=== PATIENT | female | born 1950 | race Caucasian/White ===

== ENCOUNTER 2022-04-21 07:45 | Outpatient (CLI) | payer OTHER | END 2022-04-21 07:46 | disposition home or self-care (01) | LOC: SCSMRI 07:45 | DX: M71.21 Synovial cyst of popliteal space [Baker], right knee (principal); M89.38 Hypertrophy of bone, other site ==

== ENCOUNTER 2022-08-02 15:37 | Outpatient (CLI) | payer OTHER | END 2022-08-02 15:38 | disposition home or self-care (01) | LOC: ULT 15:37 | PROVIDERS: ATTEND Family Medicine | DX: R22.2 Localized swelling, mass and lump, trunk (principal) | CPT/HCPCS: 76999 ==

== ENCOUNTER 2023-06-28 08:37 | Outpatient (CLI) | payer OTHER | END 2023-06-28 08:38 | disposition home or self-care (01) | LOC: MRI 08:37 | PROVIDERS: ATTEND Family Medicine | DX: Z86.73 Personal history of transient ischemic attack (TIA), and cerebral infarction without residual deficits (principal); I67.89 Other cerebrovascular disease | CPT/HCPCS: 70551; 93880 ==

== ENCOUNTER 2023-09-27 12:24 | Outpatient (CLI) | payer OTHER | END 2023-09-27 12:25 | disposition home or self-care (01) | LOC: CT 12:24 | PROVIDERS: ATTEND Family Medicine | DX: Z12.2 Encounter for screening for malignant neoplasm of respiratory organs (principal); N28.1 Cyst of kidney, acquired; E27.8 Other specified disorders of adrenal gland; Z87.891 Personal history of nicotine dependence | CPT/HCPCS: 71271 ==

== ENCOUNTER 2023-09-30 07:56 | Outpatient (CLI) | payer OTHER | END 2023-09-30 07:57 | disposition home or self-care (01) | LOC: BICMAMMO 07:56 | PROVIDERS: ATTEND Family Medicine | DX: Z12.31 Encounter for screening mammogram for malignant neoplasm of breast (principal); Z91.89 Other specified personal risk factors, not elsewhere classified | CPT/HCPCS: 77063; 77067 ==

== ENCOUNTER 2023-12-26 09:36 | Outpatient (CLI) | payer OTHER ==
[~2023-12-26 09:36] MED LIST: Iopamidol 370 76% 100 ML VIAL ONE
== END 2023-12-26 09:37 | disposition home or self-care (01) ==
LOC: BICCT 09:36
PROVIDERS: ATTEND Family Medicine
DX: E27.8 Other specified disorders of adrenal gland (principal); N28.1 Cyst of kidney, acquired; I71.43 Infrarenal abdominal aortic aneurysm, without rupture
CPT/HCPCS: 74170; 82565; Q9967

== ENCOUNTER 2024-05-07 22:11 | Inpatient (IN) | payer OTHER, MEDICARE ==
[2024-05-07] MEDS ORDERED: Dexamethasone 10 MG/ML VIAL ONE ×2 (23:23→23:55)
[2024-05-07] MEDS ORDERED: Albuterol 2.5 MG (3 mL) NEB ONE (23:23)
[2024-05-07] MEDS ORDERED: Ipratropium/Albuterol 3 ML NEB ONE (23:24)
[2024-05-07] MEDS ORDERED: Magnesium 2 GM/50 ML BAG (IN WATER) ONE (23:24)
[2024-05-08] LABS: #Basophils 0.05 10x3/uL (0.0-0.2); %Basophils 0.5 % (0.0-1.0); %Eosinophils 1.1 % (0.0-10.0); %Monocytes 10.3 % (0.0-10.0); %Neutrophils 67.7 % (42.0-75.0); Hematocrit 37.8 % (36.0-47.0); Mean Corpuscular HGB CONC 34.4 g/dL (32.0-36.0); Mean Corpuscular Hemoglobin 32.4 pg (27.0-31.0); Mean Corpuscular Volume 94.3 fL (78.0-98.0); Mean Platelet Volume 10.2 fL (7.4-10.4); Platelet Count 211 10x3/uL (130-400); RBC Distribution Width 13.4 % (11.5-14.5); Red Blood Cell (RBC) Count 4.01 mill/uL (4.20-5.40)
[2024-05-08 00:24] LABS: ALT (SGPT) 16 U/L (8-55); AST (SGOT) 26 U/L (5-34); Albumin 3.7 g/dL (3.4-4.8); Alkaline Phosphatase 83 U/L (40-110); Anion Gap 13 mmol/L (10-20); BUN (Urea Nitrogen) 10 mg/dL (9.8-20.1); Bilirubin, Total 0.5 mg/dL (0.2-1.2); Calc. Creatinine Clearance 0 mL/min (70-130); Calcium 9.3 mg/dL (7.8-10.44); Carbon Dioxide 24 mmol/L (23-31); Chloride 102 mmol/L (98-107); Estimated GFR 94; Glucose 106 mg/dL (83-110); Potassium 4.9 mmol/L (3.5-5.1); Protein, Total 7.7 g/dL (5.8-8.1); Sodium 134 mmol/L (136-145); Troponin I Less than 0.010 ng/mL (< 0.028)
[2024-05-08 00:58] LABS: Bacteria/HPF None Seen HPF (None Seen); Bilirubin Negative (Negative); Blood, Urine Negative (Negative); CAUTI Indications for Culture Dysuria,urgency,freq; Clarity Clear (Clear); Glucose, Urine (Dipstick) Normal (Negative); Ketone, Urine Negative (Negative); Leukocyte Negative Leu/uL (Negative); Nitrite Negative (Negative); Protein, Urine (Dipstick) Negative (Neg-Trace); RBC/HPF 0-3 HPF (0-3); Specific Gravity, Urine 1.006 (1.002-1.036); Squamous Epithelial None Seen HPF (0-3); Urobilinogen Normal mg/dL (Less than 2); WBC/HPF None Seen HPF (0-3)
[2024-05-08 01:00] LABS: Urine Culture Reflex No No
[2024-05-08] MEDS ORDERED: Albuterol 2.5 MG (0.5 mL) NEB ONE (01:21)
[2024-05-08] MEDS ORDERED: LevoFLOXacin 750 mg/D5W 150 ml Premix Bag ONE (01:21)
[2024-05-08] MEDS ORDERED: Ipratropium/Albuterol 3 ML NEB ONE (01:21)
[2024-05-08] MEDS ORDERED: Ipratropium/Albuterol 3 ML NEB NEB PRN (02:36)
[2024-05-08] MEDS ORDERED: Acetaminophen 325 MG TAB PO PRN (02:47)
[2024-05-08] MEDS ORDERED: Ondansetron ODT 4 MG TAB PO PRN (02:47)
[2024-05-08] MEDS ORDERED: Ondansetron PF 4 MG/2 ML Vial IVP PRN (02:47)
[2024-05-08] MEDS ORDERED: Acetaminophen 650 MG Suppository PR PRN (02:47)
[2024-05-08] MEDS: Sodium Chloride 0.9% 1,000 ML IV SCH (02:55)
[2024-05-08 03:09] VITALS: BMI 27.6
[2024-05-08] MEDS: Azithromycin 500 MG in Sodium Chloride 0.9% 250 ML 250 ML IVPB SCH (04:28)
[2024-05-08 05:41] LABS: #Basophils Less than 0.03 10x3/uL (0.0-0.2); #Eosinophils Less than 0.03 10x3/uL (0.0-0.7); %Basophils 0.3 % (0.0-1.0); %Lymphocytes 3.4 % (21.0-51.0); %Monocytes 2.3 % (0.0-10.0); %Neutrophils 93.6 % (42.0-75.0); Hematocrit 31.6 % (36.0-47.0); Mean Corpuscular HGB CONC 34.8 g/dL (32.0-36.0); Mean Corpuscular Volume 94.9 fL (78.0-98.0); Mean Platelet Volume 10.3 fL (7.4-10.4); Platelet Count 205 10x3/uL (130-400); RBC Distribution Width 13.7 % (11.5-14.5); Red Blood Cell (RBC) Count 3.33 mill/uL (4.20-5.40)
[2024-05-08 06:20] LABS: Anion Gap 14 mmol/L (10-20); BUN (Urea Nitrogen) 9 mg/dL (9.8-20.1); Calc. Creatinine Clearance 75 mL/min (70-130); Calcium 8.3 mg/dL (7.8-10.44); Carbon Dioxide 22 mmol/L (23-31); Chloride 107 mmol/L (98-107); Estimated GFR 94; Glucose 170 mg/dL (83-110); Sodium 140 mmol/L (136-145)
[2024-05-08] MEDS: cefTRIAXone\\ROCEPHIN 1 GM in Sodium Chloride 0.9% 100 ML IVPB SCH (06:26)
[2024-05-08] MEDS: Ipratropium/Albuterol 3 ML NEB NEB SCH ×2 (07:19→18:41)
[2024-05-08] MEDS ORDERED: Dexamethasone 10 MG/ML VIAL SLOW IVP SCH (09:00)
[2024-05-08] MEDS: Famotidine 20 MG TAB PO SCH (09:05)
[2024-05-08] MEDS: predniSONE 20 MG TAB PO SCH (09:05)
[2024-05-08] MEDS: Loratadine 10 MG TAB PO SCH (09:06)
[2024-05-08] MEDS ORDERED: Iopamidol-370 76% 500 ML MDV (1 ML CHARGE) ONE (10:14)
[2024-05-08] MEDS ORDERED: Electrolyte Replacement Protocol 1 EACH FS SCH (10:30)
[2024-05-08] MEDS ORDERED: Electrolyte Replacement Protocol FS PRN (10:30)
[2024-05-08] MEDS: Potassium Chloride 20 MEQ TAB PO SCH (11:00)
[2024-05-08] MEDS: Albuterol 200 PUFF (6.7GM INHALER) INH SCH (14:26)
[2024-05-08 16:45] LABS: Potassium 4.9 mmol/L (3.5-5.1)
[2024-05-08] MEDS: Atorvastatin Calcium 40 MG TAB PO SCH (19:48)
[2024-05-08] MEDS: Guaifenesin DM 100-10/5 ML UDCUP PO PRN (23:03)
[2024-05-09 05:02] LABS: #Basophils 0.04 10x3/uL (0.0-0.2); #Eosinophils Less than 0.03 10x3/uL (0.0-0.7); %Basophils 0.5 % (0.0-1.0); %Eosinophils 0.3 % (0.0-10.0); %Monocytes 12.7 % (0.0-10.0); Hematocrit 31.6 % (36.0-47.0); Hemoglobin 10.8 g/dL (12.0-16.0); Mean Corpuscular HGB CONC 34.2 g/dL (32.0-36.0); Mean Corpuscular Hemoglobin 32.3 pg (27.0-31.0); Mean Corpuscular Volume 94.6 fL (78.0-98.0); Mean Platelet Volume 10.6 fL (7.4-10.4); Platelet Count 195 10x3/uL (130-400); RBC Distribution Width 14.3 % (11.5-14.5); Red Blood Cell (RBC) Count 3.34 mill/uL (4.20-5.40)
[2024-05-09 05:21] LABS: Anion Gap 10 mmol/L (10-20); BUN (Urea Nitrogen) 11 mg/dL (9.8-20.1); Calc. Creatinine Clearance 78 mL/min (70-130); Calcium 8.4 mg/dL (7.8-10.44); Carbon Dioxide 24 mmol/L (23-31); Chloride 110 mmol/L (98-107); Estimated GFR 95; Glucose 102 mg/dL (83-110); Magnesium 1.8 mg/dL (1.6-2.6); Potassium 3.9 mmol/L (3.5-5.1); Sodium 140 mmol/L (136-145)
[2024-05-09] MEDS: Aspirin 81 mg Enteric Coated Tablet PO SCH (08:23)
[2024-05-09] MEDS: Magnesium 2 GM/50 ML(in water) 2 GM in Premix 1 BAG IVPB SCH (08:23)
[2024-05-09] MEDS: Hydrochlorothiazide 25 MG TAB PO SCH (08:23)
[2024-05-09] MEDS: Losartan 25 MG TAB PO SCH (08:23)
[2024-05-09 08:25] VITALS: BP 106/61; TEMP 98.5
[2024-05-09] MEDS ORDERED: Non-Formulary Item 1 EACH (Telmisartan/Hydrochlorothiazid [Micardis Hct] 80 MG/12.5 MG Ta PO SCH (09:00)
== END 2024-05-09 15:10 | disposition home or self-care (01) | DRG 192 ==
LOC: ERS 22:11 → T4-A 05-08 01:52 → INTOOBSV 05-08 01:52 → OBSVTOIN 05-09 09:11
PROVIDERS: ADMIT Student in an Organized Health Care Education/Training Program; ATTEND Internal Medicine
DX: J44.1 Chronic obstructive pulmonary disease with (acute) exacerbation (principal); I10 Essential (primary) hypertension; F17.210 Nicotine dependence, cigarettes, uncomplicated; Z90.49 Acquired absence of other specified parts of digestive tract; Z79.82 Long term (current) use of aspirin; Z79.02 Long term (current) use of antithrombotics/antiplatelets; Z79.899 Other long term (current) drug therapy
CPT/HCPCS: 36415; 71045; 71275; 80048; 80053; 81001; 83605; 83735; 83880; 84484; 85025; 85379; 87040; 87086; 87428; 87633; 87798; 93005; 94640; 94760; 96365; 96366; 96368; 96375; 96376; G0378; J0456; J0696; J1100; J1956; J3475; J7030; J7050; J7512; J7611; J7620; Q9967